=== PATIENT | male | born 1945 | race Caucasian/White ===

== ENCOUNTER → 2017-06-09 | Outpatient (CLI) | payer OTHER ==
[~2017-06-09] MED LIST: CEPH-368 PO; CIALIS PO; CYCL-259 PO; HYDR-3245 PO; OMEPRAZOLE PO
== END | disposition home or self-care (01) ==
LOC: CFH 07:10
PROVIDERS: ATTEND Physician Assistant Surgical
DX: M50.33 Other cervical disc degeneration, cervicothoracic region (principal); M48.02 Spinal stenosis, cervical region; M50.21 Other cervical disc displacement, high cervical region; M43.23 Fusion of spine, cervicothoracic region; M43.13 Spondylolisthesis, cervicothoracic region
CPT/HCPCS: 72050; 72141

== ENCOUNTER 2018-09-19 08:58 | Outpatient (CLI) | payer MEDICARE ==
[2018-09-19] MEDS ORDERED: OMEP-110 PO (09:37)
[2018-09-19] MEDS ORDERED: ROSU10TA2 PO (09:37)
[2018-09-19] MEDS ORDERED: TAMS0.4C2 PO (09:37)
[2018-09-19 10:16] LABS: BASOPHILS # (AUTO) 0.05 x10^3/uL (0-0.1); BASOPHILS % (AUTO) 0 % (0-1); EOSINOPHILS # (AUTO) 0.07 x10^3/uL (0-0.4); EOSINOPHILS % (AUTO) 1 % (1-7); LYMPHOCYTES # (AUTO) 2.04 x10^3/uL (1-3.4); LYMPHOCYTES % (AUTO) 19 % (22-44); MD NO; MEAN CORPUSCULAR HEMOGLOBIN 31.8 pg (27.5-34.5); MEAN CORPUSCULAR HGB CONC 33.4 g/dL (33.2-36.2); MEAN CORPUSCULAR VOLUME 95.1 fL (81-97); MEAN PLATELET VOLUME 8.2 fL (7.4-10.4); MONOCYTES # (AUTO) 0.76 x10^3/uL (0.2-0.8); MONOCYTES % (AUTO) 7 % (2-9); NEUTROPHILS # (AUTO) 7.74 x10^3/uL (1.8-6.8); NEUTROPHILS % (AUTO) 73 % (42-75); PLATELET COUNT 224 x10^3/uL (130-400); RED BLOOD COUNT 4.92 x10^6/uL (4.38-5.82); RED CELL DISTRIBUTION WIDTH 14.4 % (9.4-14.8)
[2018-09-19 10:25] LABS: INTERNATIONAL NORMALIZED RATIO 1.03 (0.93-1.1); MICROSCOPIC NOT IND; PROTHROMBIN TIME 10.8 Seconds (9.6-11.5)
[2018-09-19 10:28] LABS: ANION GAP 6 mmol/L (5-15); CALCIUM 8.6 mg/dL (8.5-10.1); CHLORIDE 105 mmol/L (98-107); CREATININE 0.55 mg/dL (0.7-1.3)
[2018-09-19 10:29] LABS: CULTURE INDICATED? NO
[2018-09-19 11:18] LABS: HEMOGLOBIN A1C 5.4 % (4.2-6.3)
== END 2018-09-19 23:59 | disposition home or self-care (01) ==
LOC: STAR 08:58
PROVIDERS: ATTEND Orthopaedic Surgery
DX: Z01.818 Encounter for other preprocedural examination (principal); M17.12 Unilateral primary osteoarthritis, left knee
CPT/HCPCS: 36415; 80048; 81003; 83036; 85025; 85610; 85730; 87081; 87806; 93005; G0475

== ENCOUNTER 2018-10-03 06:54 | Observation (INO) | payer MEDICARE ==
[~2018-10-03] VITALS: Ht 170.2 cm; Wt 84.6 kg
[~2018-10-03 06:54] MED LIST changes: +EPINEPHRINE 1 MG/ML, 1ML ONE; +KETOROLAC 60 MG/2 ML ONE; +OMEP-110 PO; +ROPIvacaine/PF 0.2%, 20 ML ONE; +ROSU10TA2 PO; +SODIUM CHLORIDE 0.9% 50 ML ONE; +TAMS0.4C2 PO; +TRANEXAMIC ACID 100 MG/ML, 10ML ONE
[2018-10-03] MEDS ORDERED: LACTATED RINGERS 1,000 ML IV SCH (07:18)
[2018-10-03] MEDS ORDERED: ACETAMINOPHEN 500 MG TABLET PO ONE (07:30)
[2018-10-03] MEDS ORDERED: GABAPENTIN 300 MG CAPSULE PO ONE (07:30)
[2018-10-03] MEDS ORDERED: MIDAZOLAM 1 MG/ML, 2ML ONE (07:37)
[2018-10-03] MEDS ORDERED: FENTANYL PF 250 MCG/5ML ONE (07:38)
[2018-10-03] MEDS ORDERED: ROPIvacaine/PF 0.2%, 20 ML ONE (07:42)
[2018-10-03] MEDS ORDERED: NEOSTIGMINE 1 MG/ML, 10ML ONE (07:42)
[2018-10-03] MEDS ORDERED: GLYCOPYRROLATE 0.2MG/1ML, 5ML ONE (07:42)
[2018-10-03] MEDS ORDERED: ROCURONIUM 10MG/ML,5ML ONE (07:42)
[2018-10-03] MEDS ORDERED: CEFAZOLIN 1,000 MG ONE (07:42)
[2018-10-03] MEDS ORDERED: PROPOFOL 10 MG/ML, 20ML ONE (07:42)
[2018-10-03] MEDS ORDERED: PROMETHAZINE 25 MG/ML, 1ML IV PRN (08:30)
[2018-10-03] MEDS ORDERED: MEPERIDINE/PF 25MG/0.5ML IVPush PRN (08:30)
[2018-10-03] MEDS ORDERED: PROMETHAZINE 12.5 MG SUPP PR PRN ×2 (08:30→11:30)
[2018-10-03] MEDS ORDERED: LABETALOL 5MG/ML, 20ML IV PRN (08:30)
[2018-10-03] MEDS ORDERED: OXYcodone 5 MG/5 ML ORAL.SOL UDC PO PRN (08:30)
[2018-10-03] MEDS ORDERED: ONDANSETRON 2MG/ML, 2ML IV PRN ×2 (08:30→11:30)
[2018-10-03] MEDS ORDERED: ONDANSETRON ODT 8 MG PO PRN (08:30)
[2018-10-03] MEDS ORDERED: FENTANYL PF 100 MCG/2ML IV PRN (08:30)
[2018-10-03] MEDS ORDERED: hydrALAzine 20 MG/ML, 1ML IV PRN (08:30)
[2018-10-03] MEDS ORDERED: PROMETHAZINE 25 MG SUPP PR PRN (08:30)
[2018-10-03] MEDS ORDERED: MORPHINE SULFATE 4 MG/ML, 1ML IVPush PRN (08:30)
[2018-10-03] MEDS ORDERED: PROMETHAZINE 25 MG/ML, 1ML IM PRN ×3 (08:30→11:30)
[2018-10-03] MEDS ORDERED: ONDANSETRON 2MG/ML, 2ML ONE (09:18)
[2018-10-03] MEDS ORDERED: FENTANYL PF 100 MCG/2ML ONE (10:10)
[2018-10-03] MEDS ORDERED: TRANEXAMIC ACID 1,000 MG in SODIUM CHLORIDE 0.9% 100 ML IV STA (11:10)
[2018-10-03] MEDS ORDERED: ONDANSETRON 4 MG TABLET PO PRN (11:30)
[2018-10-03] MEDS ORDERED: ALUMINUM/MAG/SIMETHICONE 30 ML UDC PO PRN (11:30)
[2018-10-03] MEDS ORDERED: MAGNESIUM HYDROXIDE 8%, 30ML UDC PO PRN (11:30)
[2018-10-03] MEDS ORDERED: DIPHENHYDRAMINE 50 MG CAPSULE PO PRN (11:30)
[2018-10-03] MEDS ORDERED: SENNA/DOCUSATE TABLET PO PRN (11:30)
[2018-10-03] MEDS ORDERED: ACETAMINOPHEN 650 MG/20.3 ML UDC PO PRN (11:30)
[2018-10-03] MEDS ORDERED: HYDROmorphone 1 MG/ML, 1ML IV PRN (11:30)
[2018-10-03] MEDS ORDERED: OXYcodone 5 MG/5 ML ORAL.SOL UDC ONE (11:41)
[2018-10-03] MEDS ORDERED: HYDROmorphone 1 MG/ML, 1ML ONE (11:41)
[2018-10-03] MEDS: HYDROmorphone 2 MG/ML, 1ML IVPush PRN ×3 (11:44→12:04)
[2018-10-03 12:30] VITALS: BP 141/71
[2018-10-03] MEDS: D5%-0.45NACL+KCL 20MEQ 1,000 ML IV SCH ×2 (16:44→18:58)
[2018-10-03] MEDS: CEFAZOLIN PMX 1GM/50ML 50 ML IVPB SCH ×2 (16:44→23:29)
[2018-10-03] MEDS: ASPIRIN 81 MG TABLET EC PO SCH (16:44)
[2018-10-03] MEDS: OXYcodone IR 5MG TABLET PO PRN ×2 (16:44→21:06)
[2018-10-03 18:58] VITALS: BP 100/62
[2018-10-03] MEDS ORDERED: ATORVASTATIN 40 MG TABLET PO SCH (21:00)
[2018-10-03] MEDS: DOCUSATE 100 MG CAPSULE PO SCH (21:06)
[2018-10-04 00:08] VITALS: BP 112/70
[2018-10-04] MEDS: D5%-0.45NACL+KCL 20MEQ 1,000 ML IV SCH (00:11)
[2018-10-04 04:28] VITALS: BP 128/82
[2018-10-04] MEDS: OXYcodone IR 5MG TABLET PO PRN ×3 (04:45→08:43)
[2018-10-04] MEDS ORDERED: DEXAMETHASONE 4 MG/ML, 1ML IVPush SCH (06:00)
[2018-10-04] MEDS ORDERED: OMEPRAZOLE 20 MG CAPSULE.DR PO SCH (06:00)
[2018-10-04] MEDS: ASPIRIN 81 MG TABLET EC PO SCH (06:12)
[2018-10-04] MEDS: DOCUSATE 100 MG CAPSULE PO SCH (08:15)
[2018-10-04] MEDS ORDERED: TAMSULOSIN 0.4 MG CAP.ER.24H PO SCH (09:00)
[2018-10-04] MEDS ORDERED: ASPI81TA45 PO (09:20)
[2018-10-04 09:48] VITALS: BP 126/73
[2018-10-04] MEDS ORDERED: KETOROLAC 30 MG/1 ML IV SCH (11:30)
== END 2018-10-04 10:40 | disposition home or self-care (01) ==
LOC: OR 06:54 → ORIP 11:12 → 4NOR 12:26 → DCLOUNGE 10-04 10:22
PROVIDERS: ADMIT Orthopaedic Surgery; ATTEND Orthopaedic Surgery
DX: M17.12 Unilateral primary osteoarthritis, left knee (principal); E11.9 Type 2 diabetes mellitus without complications; K21.9 Gastro-esophageal reflux disease without esophagitis; E78.5 Hyperlipidemia, unspecified; N40.0 Benign prostatic hyperplasia without lower urinary tract symptoms
CPT/HCPCS: 27447; 36415; 73560; 85014; 85018; 96365; 96366; 96375; 97110; 97161; 97165; C1776; G0378; J0171; J0690; J1100; J1170; J1885; J2250; J2405; J2704; J2710; J2795; J3010; J3480; J3490; J7120

== ENCOUNTER 2019-06-20 07:37 | Outpatient (CLI) | payer MEDICARE ==
[~2019-06-20 07:37] MED LIST changes: +ASPI81TA45 PO; -EPINEPHRINE 1 MG/ML, 1ML ONE; -KETOROLAC 60 MG/2 ML ONE; -ROPIvacaine/PF 0.2%, 20 ML ONE; -SODIUM CHLORIDE 0.9% 50 ML ONE; -TRANEXAMIC ACID 100 MG/ML, 10ML ONE
[2019-06-20 08:59] LABS: BASOPHILS # (AUTO) 0.05 x10^3/uL (0-0.1); BASOPHILS % (AUTO) 1 % (0-1); EOSINOPHILS # (AUTO) 0.07 x10^3/uL (0-0.4); EOSINOPHILS % (AUTO) 1 % (1-7); LYMPHOCYTES # (AUTO) 1.92 x10^3/uL (1-3.4); LYMPHOCYTES % (AUTO) 26 % (22-44); MD NO; MEAN CORPUSCULAR HEMOGLOBIN 32.2 pg (27.5-34.5); MEAN CORPUSCULAR HGB CONC 33.8 g/dL (33.2-36.2); MEAN CORPUSCULAR VOLUME 95.3 fL (81-97); MEAN PLATELET VOLUME 8.1 fL (7.4-10.4); MONOCYTES # (AUTO) 0.62 x10^3/uL (0.2-0.8); MONOCYTES % (AUTO) 8 % (2-9); NEUTROPHILS # (AUTO) 4.74 x10^3/uL (1.8-6.8); NEUTROPHILS % (AUTO) 64 % (42-75); PLATELET COUNT 236 x10^3/uL (130-400); RED BLOOD COUNT 4.77 x10^6/uL (4.38-5.82); RED CELL DISTRIBUTION WIDTH 13.7 % (9.4-14.8)
[2019-06-20 09:02] LABS: MICROSCOPIC NOT IND
[2019-06-20 09:05] LABS: ANION GAP 4 mmol/L (5-15); CHLORIDE 106 mmol/L (98-107); CREATININE 0.59 mg/dL (0.7-1.3); INTERNATIONAL NORMALIZED RATIO 1.03 (0.93-1.1); PROTHROMBIN TIME 10.8 Seconds (9.6-11.5)
[2019-06-20 09:16] LABS: CULTURE INDICATED? NO
[2019-06-28] MEDS ORDERED: ASPI-496 PO (13:11)
== END 2019-06-20 23:59 | disposition home or self-care (01) ==
LOC: STAR 07:37
PROVIDERS: ATTEND Neurological Surgery
DX: Z01.810 Encounter for preprocedural cardiovascular examination (principal); Z01.811 Encounter for preprocedural respiratory examination; Z01.812 Encounter for preprocedural laboratory examination; M48.02 Spinal stenosis, cervical region; M50.31 Other cervical disc degeneration, high cervical region; M43.22 Fusion of spine, cervical region; R79.1 Abnormal coagulation profile; R94.31 Abnormal electrocardiogram [ECG] [EKG]; R82.90 Unspecified abnormal findings in urine
CPT/HCPCS: 36415; 71046; 72050; 80048; 81003; 85025; 85610; 85730; 93005

== ENCOUNTER 2019-06-30 09:23 | Inpatient (IN) | payer MEDICARE ==
[~2019-06-30] VITALS: Ht 172.7 cm; Wt 79.0 kg
[~2019-06-30 09:23] MED LIST changes: +ASPI-496 PO; +BACITRACIN 50,000 UNIT ONE; +BUPIVACAINE/PF 0.5% ONE; +EPINEPHRINE 1 MG/ML, 1ML ONE; +THROMBIN 5,000 UNIT VIAL TP ONE
[2019-06-30] MEDS ORDERED: GABAPENTIN 300 MG CAPSULE PO ONE (10:00)
[2019-06-30] MEDS ORDERED: ACETAMINOPHEN 500 MG TABLET PO ONE (10:00)
[2019-06-30] MEDS ORDERED: FENTANYL PF 250 MCG/5ML ONE (10:09)
[2019-06-30] MEDS ORDERED: PROPOFOL 100 ML ONE (10:10)
[2019-06-30] MEDS ORDERED: CEFAZOLIN 1,000 MG ONE (10:11)
[2019-06-30] MEDS ORDERED: GLYCOPYRROLATE 0.2MG/1ML, 5ML ONE (10:11)
[2019-06-30] MEDS ORDERED: NEOSTIGMINE 1 MG/ML, 10ML ONE (10:11)
[2019-06-30] MEDS ORDERED: ROCURONIUM 10MG/ML,5ML ONE (10:11)
[2019-06-30] MEDS ORDERED: PROPOFOL 10 MG/ML, 20ML ONE (10:11)
[2019-06-30] MEDS ORDERED: LACTATED RINGERS 1,000 ML IV SCH (10:29)
[2019-06-30] MEDS ORDERED: ONDANSETRON 2MG/ML, 2ML IV PRN (12:30)
[2019-06-30] MEDS ORDERED: MEPERIDINE/PF 25MG/ML,1ML IVPush PRN (12:30)
[2019-06-30] MEDS ORDERED: LABETALOL 5MG/ML, 20ML IV PRN (12:30)
[2019-06-30] MEDS ORDERED: HYDROmorphone 2 MG/ML, 1ML IVPush PRN (12:30)
[2019-06-30] MEDS ORDERED: OXYcodone 5 MG/5 ML ORAL.SOL UDC PO PRN (12:30)
[2019-06-30] MEDS ORDERED: MORPHINE SULFATE 4 MG/ML, 1ML IVPush PRN (12:30)
[2019-06-30] MEDS ORDERED: hydrALAzine 20 MG/ML, 1ML IV PRN (12:30)
[2019-06-30] MEDS ORDERED: SUGAMMADEX 200 MG/2 ML IVPush ONE (12:47)
[2019-06-30] MEDS ORDERED: OXYcodone 5 MG/5 ML ORAL.SOL UDC ONE (14:21)
[2019-06-30] MEDS ORDERED: METHOCARBAMOL 750 MG TABLET ONE (14:21)
[2019-06-30] MEDS ORDERED: ONDANSETRON 2MG/ML, 2ML ONE (14:21)
[2019-06-30] MEDS ORDERED: DIPHENHYDRAMINE 50 MG/ML, 1ML IVPush PRN (14:30)
[2019-06-30] MEDS ORDERED: CYCLOBENZAPRINE 10 MG TABLET PO PRN (14:30)
[2019-06-30] MEDS ORDERED: MAGNESIUM HYDROXIDE 8%, 30ML UDC PO PRN (14:30)
[2019-06-30] MEDS ORDERED: SENNA/DOCUSATE TABLET PO PRN (14:30)
[2019-06-30] MEDS ORDERED: OXYcodone/APAP 5/325MG TABLET PO PRN (14:30)
[2019-06-30] MEDS ORDERED: PHARMACY MAY ADJ FOR RENAL FX MC PRN (14:30)
[2019-06-30] MEDS ORDERED: METHOCARBAMOL 750 MG TABLET PO PRN (14:30)
[2019-06-30] MEDS: D5%-0.9% NACL+KCL 20MEQ 1,000 ML IV SCH (14:30)
[2019-06-30] MEDS ORDERED: morphine SULFATE 10 MG/ML, 1ML IVPush PRN (14:30)
[2019-06-30] MEDS ORDERED: PROMETHAZINE 25 MG/ML, 1ML IM PRN (14:30)
[2019-06-30] MEDS ORDERED: HYDROcodone/APAP 5/325 TABLET PO PRN (14:30)
[2019-06-30] MEDS ORDERED: ONDANSETRON 2MG/ML, 2ML IVPush PRN (14:30)
[2019-06-30] MEDS ORDERED: MEPERIDINE/PF 25MG/ML,1ML ONE (14:38)
[2019-06-30] MEDS ORDERED: FENTANYL PF 100 MCG/2ML ONE (14:48)
[2019-06-30] MEDS: FENTANYL PF 100 MCG/2ML IV PRN ×2 (14:50→14:55)
[2019-06-30] MEDS: HYDROcodone/APAP 10/325 MG TABLET PO PRN ×3 (18:52→23:37)
[2019-06-30 19:15] VITALS: BP 105/71
[2019-06-30] MEDS: CEFAZOLIN PMX 1GM/50ML 50 ML IVPB SCH (20:21)
[2019-06-30] MEDS ORDERED: ATORVASTATIN 40 MG TABLET PO SCH (21:00)
[2019-06-30] MEDS: SODIUM CHLORIDE FLUSH 10ML SYR IVF SCH (21:00)
[2019-07-01 00:34] VITALS: BP 95/58
[2019-07-01] MEDS: HYDROcodone/APAP 10/325 MG TABLET PO PRN ×2 (01:12→05:21)
[2019-07-01 04:27] VITALS: BP 98/62
[2019-07-01] MEDS: CEFAZOLIN PMX 1GM/50ML 50 ML IVPB SCH (04:36)
[2019-07-01 07:47] VITALS: BP 107/65
[2019-07-01] MEDS: SODIUM CHLORIDE FLUSH 10ML SYR IVF SCH (09:00)
[2019-07-01] MEDS ORDERED: TAMSULOSIN 0.4 MG CAP.ER.24H PO SCH (09:00)
[2019-07-01] MEDS: D5%-0.9% NACL+KCL 20MEQ 1,000 ML IV SCH (10:30)
[2019-07-01] MEDS ORDERED: HYDR-36 PO (10:53)
[2019-07-01] MEDS ORDERED: METH750T87 PO (10:53)
[2019-07-01] MEDS ORDERED: CEPH-368 PO (10:54)
== END 2019-07-01 11:35 | disposition home or self-care (01) | DRG 473 ==
LOC: ORIP 09:23 → 4NE 15:21 → DCLOUNGE 07-01 11:00
PROVIDERS: ADMIT Neurological Surgery; ATTEND Neurological Surgery
PROC: 0RB30ZZ Excision of Cervical Vertebral Disc, Open Approach (ICD-10-PCS; 2019-06-30)
PROC: 4A11X4G Monitoring of Peripheral Nervous Electrical Activity, Intraoperative, External Approach (ICD-10-PCS; 2019-06-30)
PROC: 0RG10A0 Fusion of Cervical Vertebral Joint with Interbody Fusion Device, Anterior Approach, Anterior Column, Open Approach (ICD-10-PCS; principal; 2019-06-30 13:00)
DX: M48.02 Spinal stenosis, cervical region (principal); M50.31 Other cervical disc degeneration, high cervical region; E78.5 Hyperlipidemia, unspecified; N40.0 Benign prostatic hyperplasia without lower urinary tract symptoms
CPT/HCPCS: 72040; C1713; G0378; J0171; J0690; J2405; J2704; J2710; J3010; C1762; J2175; J7120

== ENCOUNTER → 2020-05-22 | Outpatient (CLI) | payer MEDICARE ==
[~2020-05-22] MED LIST changes: -BACITRACIN 50,000 UNIT ONE; -BUPIVACAINE/PF 0.5% ONE; -EPINEPHRINE 1 MG/ML, 1ML ONE; +HYDR-3246 PO; +METH750T87 PO; +MULT-449 PO; +OMEP20TA62 PO; -THROMBIN 5,000 UNIT VIAL TP ONE; +Vitamin B12 PO; +Vitamin D3 PO; +laxaclear PO; +stool softener PO
[2020-05-22 11:20] LABS: BASOPHILS % (AUTO) 1 % (0-1); EOSINOPHILS % (AUTO) 1 % (1-7); LYMPHOCYTES % (AUTO) 21 % (22-44); MEAN CORPUSCULAR HEMOGLOBIN 32.1 pg (27.5-34.5); MEAN CORPUSCULAR HGB CONC 33.6 g/dL (33.2-36.2); MEAN PLATELET VOLUME 8.6 fL (7.4-10.4); MONOCYTES % (AUTO) 8 % (2-9); NEUTROPHILS % (AUTO) 70 % (42-75); PLATELET COUNT 218 x10^3/uL (130-400); RED BLOOD COUNT 4.91 x10^6/uL (4.38-5.82); RED CELL DISTRIBUTION WIDTH 14.1 % (9.4-14.8)
[2020-05-22 11:21] LABS: MD NO
[2020-05-22 11:24] LABS: INTERNATIONAL NORMALIZED RATIO 1.04 (0.93-1.1)
[2020-05-22 11:27] LABS: ANION GAP 5 mmol/L (5-15); CALCIUM 9.4 mg/dL (8.5-10.1); CHLORIDE 104 mmol/L (98-107); CREATININE 0.55 mg/dL (0.7-1.3)
== END | disposition home or self-care (01) ==
LOC: STAR 08:47
PROVIDERS: ATTEND Orthopaedic Surgery
DX: Z01.812 Encounter for preprocedural laboratory examination (principal); Z20.828 Contact with and (suspected) exposure to other viral communicable diseases; M17.11 Unilateral primary osteoarthritis, right knee
CPT/HCPCS: 36415; 80048; 83036; 85025; 85610; 85730; 87081; 87635; 87806; 93005; G0475

== ENCOUNTER 2020-05-27 09:44 | Observation (INO) | payer MEDICARE ==
[~2020-05-27] VITALS: Ht 172.7 cm; Wt 89.0 kg
[2020-05-27] MEDS ORDERED: ACETAMINOPHEN 500 MG TABLET ONE (10:20)
[2020-05-27] MEDS ORDERED: GABAPENTIN 300 MG CAPSULE ONE (10:21)
[2020-05-27] MEDS ORDERED: CHLORHEXIDINE 15 ML UDC ONE (10:21)
[2020-05-27] MEDS: LACTATED RINGERS 1,000 ML IV SCH ×2 (10:24→17:08)
[2020-05-27] MEDS ORDERED: ACETAMINOPHEN 500 MG TABLET PO ONE (10:30)
[2020-05-27] MEDS ORDERED: GABAPENTIN 300 MG CAPSULE PO ONE (10:30)
[2020-05-27] MEDS ORDERED: CHLORHEXIDINE 15 ML UDC MM ONE (10:30)
[2020-05-27] MEDS ORDERED: KETOROLAC 60 MG/2 ML ONE (10:45)
[2020-05-27] MEDS ORDERED: TRANEXAMIC ACID 100 MG/ML, 10ML ONE (10:45)
[2020-05-27] MEDS ORDERED: EPINEPHRINE 1 MG/ML, 1ML ONE (10:46)
[2020-05-27] MEDS ORDERED: SODIUM CHLORIDE 0.9% 50 ML ONE (10:46)
[2020-05-27] MEDS ORDERED: ROPIvacaine/PF 0.2%, 20 ML ONE (10:46)
[2020-05-27] MEDS ORDERED: FENTANYL PF 250 MCG/5ML ONE (11:16)
[2020-05-27] MEDS ORDERED: EPINEPHRINE 1 MG/ML, 1ML INFIL ONE (12:15)
[2020-05-27] MEDS ORDERED: ROPIvacaine/PF 0.2%, 20 ML INFIL ONE (12:15)
[2020-05-27] MEDS ORDERED: KETOROLAC 60 MG/2 ML IM ONE (12:15)
[2020-05-27] MEDS ORDERED: SODIUM CHLORIDE 0.9% 1,000ML IV ONE (12:15)
[2020-05-27] MEDS ORDERED: PROMETHAZINE 25 MG/ML, 1ML IVPush PRN (12:30)
[2020-05-27] MEDS ORDERED: OXYcodone 5 MG/5 ML ORAL.SOL UDC PO PRN (12:30)
[2020-05-27] MEDS ORDERED: hydrALAzine 20 MG/ML, 1ML IV PRN (12:30)
[2020-05-27] MEDS ORDERED: ACETAMINOPHEN 325 MG TABLET PO PRN (12:30)
[2020-05-27] MEDS ORDERED: MEPERIDINE/PF 25MG/0.5ML IVPush PRN (12:30)
[2020-05-27] MEDS ORDERED: ALBUTEROL SULFATE 2.5 MG/3 ML NPPB PRN (12:30)
[2020-05-27] MEDS ORDERED: LABETALOL 5MG/ML, 20ML IV PRN (12:30)
[2020-05-27] MEDS ORDERED: LORazepam 2 MG/ML, 1ML IVPush PRN (12:30)
[2020-05-27] MEDS ORDERED: HYDROmorphone 1 MG/ML, 1ML INJ IVPush PRN ×2 (12:30→14:00)
[2020-05-27] MEDS ORDERED: PROPOFOL 10 MG/ML, 20ML ONE (12:35)
[2020-05-27] MEDS ORDERED: CEFAZOLIN 1,000 MG ONE (12:35)
[2020-05-27] MEDS ORDERED: BUPIVACAINE/PF 0.5% ONE (12:35)
[2020-05-27] MEDS ORDERED: ONDANSETRON 2MG/ML, 2ML ONE (12:35)
[2020-05-27] MEDS ORDERED: DEXAMETHASONE 4 MG/ML, 1ML ONE (12:35)
[2020-05-27] MEDS ORDERED: LIDOCAINE-MPF 2% ,5ML ONE (12:35)
[2020-05-27] MEDS ORDERED: OXYcodone 5 MG/5 ML ORAL.SOL UDC ONE (13:50)
[2020-05-27] MEDS ORDERED: FENTANYL PF 100 MCG/2ML ONE (13:50)
[2020-05-27] MEDS ORDERED: POLYETHYLENE GLYCOL 17 GM PACKET PO PRN (14:00)
[2020-05-27] MEDS ORDERED: PSYLLIUM PACKET PO PRN (14:00)
[2020-05-27] MEDS ORDERED: ACETAMINOPHEN 650 MG/20.3 ML UDC PO PRN (14:00)
[2020-05-27] MEDS ORDERED: ONDANSETRON 2MG/ML, 2ML IVPush PRN (14:00)
[2020-05-27] MEDS ORDERED: TRANEXAMIC ACID 1,000 MG in SODIUM CHLORIDE 0.9% 100 ML IVPB ONE (14:00)
[2020-05-27] MEDS ORDERED: POTASSIUM CHLORIDE 20 MEQ in D5%-0.45% NACL 1,000 ML IV SCH (14:00)
[2020-05-27] MEDS ORDERED: MAGNESIUM HYDROXIDE 8%, 30ML UDC PO PRN (14:00)
[2020-05-27] MEDS ORDERED: SENNA/DOCUSATE TABLET PO PRN (14:00)
[2020-05-27] MEDS ORDERED: ALUMINUM/MAG/SIMETHICONE 30 ML UDC PO PRN (14:00)
[2020-05-27] MEDS ORDERED: ONDANSETRON 4 MG TABLET PO PRN (14:00)
[2020-05-27] MEDS: FENTANYL PF 100 MCG/2ML IV PRN ×2 (14:05→14:32)
[2020-05-27 15:15] VITALS: BP 114/83
[2020-05-27] MEDS ORDERED: DIPHENHYDRAMINE 50 MG CAPSULE PO PRN (15:24)
[2020-05-27] MEDS ORDERED: DIPHENHYDRAMINE 50 MG/ML, 1ML IVPush PRN (15:24)
[2020-05-27] MEDS: KETOROLAC 30 MG/1 ML IV SCH (17:06)
[2020-05-27] MEDS ORDERED: ASPI81TA45 PO (18:12)
[2020-05-27 18:59] VITALS: BP 92/56
[2020-05-27] MEDS: CEFAZOLIN PMX 1GM/50ML 50 ML IVPB SCH (20:12)
[2020-05-27] MEDS: DOCUSATE 100 MG CAPSULE PO SCH (20:12)
[2020-05-27] MEDS: ASPIRIN 81 MG TABLET EC PO SCH (20:13)
[2020-05-27] MEDS ORDERED: ATORVASTATIN 40 MG TABLET PO SCH (21:00)
[2020-05-27] MEDS ORDERED: POLYETHYLENE GLYCOL 17 GM PACKET PO SCH (21:00)
[2020-05-28 00:59] VITALS: BP 103/63
[2020-05-28] MEDS: KETOROLAC 30 MG/1 ML IV SCH ×2 (01:09→08:04)
[2020-05-28] MEDS: OXYcodone IR 5MG TABLET PO PRN ×2 (02:13→08:04)
[2020-05-28] MEDS: CEFAZOLIN PMX 1GM/50ML 50 ML IVPB SCH (04:12)
[2020-05-28 04:17] VITALS: BP 93/53
[2020-05-28] MEDS ORDERED: OMEPRAZOLE 20 MG CAPSULE.DR PO SCH (06:00)
[2020-05-28] MEDS ORDERED: DEXAMETHASONE 4 MG/ML, 1ML IVPush SCH (06:00)
[2020-05-28 07:13] VITALS: BP 123/76
[2020-05-28] MEDS: DOCUSATE 100 MG CAPSULE PO SCH (08:07)
[2020-05-28] MEDS: ASPIRIN 81 MG TABLET EC PO SCH (08:09)
[2020-05-28] MEDS ORDERED: TAMSULOSIN 0.4 MG CAP.ER.24H PO SCH ×2 (09:00)
[2020-05-28] MEDS ORDERED: DOCUSATE 100 MG CAPSULE PO SCH (09:00)
== END 2020-05-28 09:15 | disposition home or self-care (01) ==
LOC: OUT 09:44 → 3WST 13:41 → DCLOUNGE 05-28 08:57
PROVIDERS: ADMIT Orthopaedic Surgery; ATTEND Orthopaedic Surgery
DX: M17.11 Unilateral primary osteoarthritis, right knee (principal); M71.20 Synovial cyst of popliteal space [Baker], unspecified knee; K21.9 Gastro-esophageal reflux disease without esophagitis; N40.0 Benign prostatic hyperplasia without lower urinary tract symptoms; F17.200 Nicotine dependence, unspecified, uncomplicated; Z79.899 Other long term (current) drug therapy
CPT/HCPCS: 27447; 36415; 73560; 85014; 85018; 96365; 96366; 96375; 96376; 97161; C1713; C1776; G0378; J0171; J0690; J1100; J1885; J2405; J2704; J2795; J3010; J3490; J7030; J7120; S0020